=== PATIENT | male | born 1975 | race Caucasian/White ===

== ENCOUNTER 2019-11-18 17:07 | Inpatient (IN) | payer OTHER ==
[~2019-11-18] VITALS: Ht 182.8 cm; Wt 106.4 kg
[2019-11-18 17:10] VITALS: BP 161/100
[2019-11-18 17:37] LABS: BASO % 0.3 % (0.0-1.0); EOS # 0.1 10*3/uL (0.0-0.4); HEMOGLOBIN 14.3 g/dl (14.0-18.0); LYMPH # 2.6 10*3/uL (1.3-4.4); LYMPH % 32.5 % (27.0-41.0); MEAN CORPUSCULAR HGB 30.3 pg (27.0-31.0); MEAN PLATELET VOLUME 9.7 fl (9.6-12.3); MONO # 0.8 10*3/uL (0.1-1.0); MONO % 9.8 % (3.0-9.0); NEUT # 4.5 10*3/uL (2.3-7.9); PLATELET COUNT AUTOMATED 281 10*3/uL (130-400); RED BLOOD COUNT 4.72 10*6/uL (4.50-5.90); RED CELL DISTRI WIDTH 12.4 % (0-14.5)
[2019-11-18 17:47] LABS: ACT PARTIAL THROMBO TIME 25.8 SECONDS (20.0-32.1); INTERNATIONAL NORM RATIO 0.9 (2.0-3.5)
[2019-11-18 17:59] LABS: LIPASE 197 U/L (73-393)
[2019-11-18 18:00] LABS: ALBUMIN 4.1 gm/dl (3.1-4.5); ALKALINE PHOSPHATASE 48 U/L (45-117); BUN 16 mg/dl (7-24); CHLORIDE 104 mmol/L (98-107); CREATININE 1.23 mg/dL (0.70-1.30); POTASSIUM 3.6 mmol/L (3.5-5.1); SGOT/AST 14 IU/L (3-35); SGPT/ALT 33 U/L (12-78); SODIUM 137 mmol/L (136-145); TOTAL PROTEIN 7.4 gm/dL (6.4-8.2)
[2019-11-18 18:02] LABS: TROPONIN I < 0.015 ng/ml (<0.045)
[2019-11-18 18:15] VITALS: BP 124/80
[2019-11-18 19:05] VITALS: BP 122/78
[2019-11-18 19:57] VITALS: BP 126/83
--- NOTE | 2019-11-18 20:36 | NUR ---
PATIENT IN BED EATING BOX LUNCH AT THIS TIME. AOX4. NO DISTRESS NOTED. 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 VSS. RN WILL CONT TO MONITOR PATIENT
[2019-11-18 21:20] VITALS: BP 135/86
--- NOTE | 2019-11-18 21:20 | NUR ---
A 44, admitted to , under the services of ANICETO Sumner DO with a diagnosis of CHEST PAIN. Chief complaint is CHEST PAIN. Patient arrived via ambulatory from ER. Monitor applied. Initial assessment completed. Vital signs taken and recorded. ANICETO SUMNER DO notified of admission to the unit. Orders received. See assessment for past medical history, medications and allergies. Patient and/or family oriented to unit. [address] visitation policy reviewed. Clothing/patient valuable form completed. HARRISON POLLOCK
[2019-11-18] MEDS ORDERED: SIMVASTATIN20 MG PO (21:39)
[2019-11-18] MEDS ORDERED: MONTELUKAST SOD10 MG PO (21:40)
[2019-11-18] MEDS ORDERED: AMLODIPINE BESYL5 MG PO (21:40)
[2019-11-18] MEDS ORDERED: BUPROPION HCL300 MG PO (21:40)
[2019-11-18] MEDS ORDERED: ESCITALOPRAM OX10 MG PO (21:40)
[2019-11-18] MEDS ORDERED: GOOD NEIGHBOR L10 MG PO (21:41)
[2019-11-18] MEDS ORDERED: LISINOPRIL10 M1 PO (21:44)
--- NOTE | 2019-11-18 22:13 | NUR ---
CONSULT CALLED TO DR PERES
--- NOTE | 2019-11-18 22:22 | NUR ---
DR WALSH UPDATED ON PT MED REQ DONE
[2019-11-19] VITALS: BP 128/82
--- NOTE | 2019-11-19 02:52 | NUR ---
24 HR CHART CHECK COMPLETE
--- NOTE | 2019-11-19 04:11 | NUR ---
PT ASLEEP IN BED. RESPIRATIONS EASY. NO S/S OF DISTRESS NOTED. WILL MONITOR. CALL LIGHT LEFT IN REACH.
[2019-11-19 06:57] LABS: BASO % 0.3 % (0.0-1.0); EOS # 0.1 10*3/uL (0.0-0.4); EOS % 1.4 % (1.0-4.0); HEMATOCRIT 41.8 % (42.0-52.0); LYMPH % 29.1 % (27.0-41.0); MEAN CELL VOLUME 88.6 fl (80.0-94.0); MEAN CORPUSCULAR HGB 29.7 pg (27.0-31.0); MEAN CORPUSCULAR HGB CONC 33.5 g/dl (33.0-37.0); MONO # 0.8 10*3/uL (0.1-1.0); MONO % 12.1 % (3.0-9.0); NEUT # 3.9 10*3/uL (2.3-7.9); NEUT % 56.5 % (47.0-73.0); PLATELET COUNT AUTOMATED 259 10*3/uL (130-400); RED BLOOD COUNT 4.72 10*6/uL (4.50-5.90); RED CELL DISTRI WIDTH 12.4 % (0-14.5); WHITE BLOOD COUNT 6.9 10*3/uL (4.8-10.8)
[2019-11-19 07:23] LABS: BUN 15 mg/dl (7-24); CHLORIDE 106 mmol/L (98-107); POTASSIUM 3.6 mmol/L (3.5-5.1); SODIUM 141 mmol/L (136-145)
--- NOTE | 2019-11-19 07:30 | NUR ---
PT RESTING IN BED AT THIS TIME. VOICES NO CONCERNS. RESPS EASY AND NON LABORED. NO S/S OF DISTRESS. CALL LIGHT WITHIN REACH.
[2019-11-19 07:35] LABS: CHOLESTEROL 219 mg/dL (<200); CREATININE 1.18 mg/dL (0.70-1.30); HDL CHOLESTEROL 31 mg/dl (40-60); LDL CHOLESTEROL 135 mg/dL (9-159); TRIGLYCERIDES 266 mg/dl (<150); VLDL CHOLESTEROL 53 mg/dL (6-40)
[2019-11-19 08:00] VITALS: BP 112/80
--- NOTE | 2019-11-19 08:00 | NUR ---
PT TAKEN OFF FLOOR TO [facility]ARDIAC REHAB
--- NOTE | 2019-11-19 10:22 | NUR ---
Shift chart check completed.
--- NOTE | 2019-11-19 10:25 | NUR ---
INFORMED CONSENT SIGNED FOR CARDIOLYTE STRESS TEST WITH DR. PERES. RESTING EKG SINUS TACHYCARDIA, HR 108, BP 124/80. COMPLETED 7:30 OF A JESS PROTOCOL STRESS TEST COMPLETING 1:30 STAGE III, 3.4 MPH/14% GRADE. PEAK HEART RATE OF 152 ACHIEVED WHICH IS 87% PREDICTED MAXIMUM AND A PEAK BP OF 160/80. PT C/O CHEST TIGHTNESS AT 5:00 MINUTES RATING IT 3-4/10 ON PAIN SCALE. TEST TERMINATED D/T FATIGUE. PAIN DECREASED TO 2/10 AT 04:00 RECOVERY. LAST RECOVERY HR 106, BP 136/70. WAITING NUCLEAR SCANNING IN STABLE CONDITION.
--- NOTE | 2019-11-19 11:43 | NUR ---
PT BACK FROM [facility] REH[facility]
[2019-11-19 12:00] VITALS: BP 139/86
--- NOTE | 2019-11-19 12:56 | NUR ---
SPOKE WITH DR SIERRA WHO STATED TO CALL DR PERES REGARDING STRESS TEST RESULTS AND RECCOMENDATIONS. LEFT A VOICEMAIL. AWAITING CALL BACK
[2019-11-19] MEDS ORDERED: ASPIRIN CHEWABL81 M1 PO (13:50)
[2019-11-19] MEDS ORDERED: LOPRESSOR25 MG PO (13:50)
[2019-11-19] MEDS ORDERED: IMDUR SA30 MG PO (13:50)
[2019-11-19] MEDS ORDERED: ATORVASTATIN CA40 M1 PO (13:50)
--- NOTE | 2019-11-19 14:10 | NUR ---
Discharge instructions reviewed with patient/family. Patient receptive and verbalizes understanding. Follow-up care arranged. Written instructions given to patient/family. HISSOM,BINTA The Discharge Plan/Instructions have been completed.
== END 2019-11-19 14:43 | disposition home or self-care (01) | DRG 311 ==
LOC: ED 17:07 → EDHOLD 18:44 → 4E 18:44 → EDHOLD 20:40 → 4E 21:01
PROVIDERS: Emergency Medicine; Student in an Organized Health Care Education/Training Program; ADMIT Family Medicine
DX: I20.8 Other forms of angina pectoris (principal); I10 Essential (primary) hypertension; E78.5 Hyperlipidemia, unspecified; F32.9 Major depressive disorder, single episode, unspecified; R73.9 Hyperglycemia, unspecified; R00.0 Tachycardia, unspecified; E83.41 Hypermagnesemia; J30.2 Other seasonal allergic rhinitis; F41.9 Anxiety disorder, unspecified; F90.9 Attention-deficit hyperactivity disorder, unspecified type; Z82.49 Family history of ischemic heart disease and other diseases of the circulatory system; Z79.899 Other long term (current) drug therapy; Z79.82 Long term (current) use of aspirin

== ENCOUNTER 2023-12-14 10:35 | Emergency (ER) | payer OTHER ==
[~2023-12-14] VITALS: Ht 182.8 cm; Wt 103.0 kg
[~2023-12-14 10:35] MED LIST: AMLODIPINE BESYL5 MG PO; ASPIRIN CHEWABL81 M1 PO; ATORVASTATIN CA40 M1 PO; BUPROPION HCL300 MG PO; ESCITALOPRAM OX10 MG PO; GOOD NEIGHBOR L10 MG PO; IMDUR SA30 MG PO; LISINOPRIL10 M1 PO; LOPRESSOR25 MG PO; MONTELUKAST SOD10 MG PO; SIMVASTATIN20 MG PO
[2023-12-14 11:17] LABS: BASO % 0.3 % (0.0-1.0); EOS # 0.2 10*3/uL (0.0-0.4); EOS % 2.4 % (1.0-4.0); HEMATOCRIT 44.6 % (42.0-52.0); LYMPH # 2.4 10*3/uL (1.3-4.4); MEAN CELL VOLUME 89.4 fl (80.0-94.0); MEAN CORPUSCULAR HGB 29.3 pg (27.0-31.0); MEAN CORPUSCULAR HGB CONC 32.7 g/dl (33.0-37.0); MEAN PLATELET VOLUME 9.2 fl (9.6-12.3); MONO # 0.7 10*3/uL (0.1-1.0); MONO % 9.3 % (3.0-9.0); NEUT # 4.2 10*3/uL (2.3-7.9); NEUT % 55.7 % (47.0-73.0); PLATELET COUNT AUTOMATED 286 10*3/uL (130-400); RED BLOOD COUNT 4.99 10*6/uL (4.50-5.90); RED CELL DISTRI WIDTH 12.3 % (0-14.5); WHITE BLOOD COUNT 7.4 10*3/uL (4.8-10.8)
[2023-12-14 11:30] LABS: ACT PARTIAL THROMBO TIME 27.3 SECONDS (20.0-32.1)
[2023-12-14 11:49] LABS: ALKALINE PHOSPHATASE 49 U/L (46-116); BUN 13 mg/dl (9-23); CHLORIDE 102 mmol/L (98-107); POTASSIUM 4.2 mmol/L (3.4-5.1); SGPT/ALT 22 U/L (5-49); TOTAL PROTEIN 7.4 gm/dL (6.0-8.0)
[2023-12-14 12:32] LABS: BILIRUBIN Negative (Negative); BLOOD Negative (Negative); CLARITY Clear (Clear); COLOR Yellow (Yellow); GLUCOSE Negative (Negative); KETONE Negative (Negative); LEUKO ESTERASE Negative (Negative); NITRITE Negative (Negative); SPECIFIC GRAVITY 1.015 (1.001-1.030); UROBILINOGEN 0.2 E.U./dl (0.0-1.0)
[2023-12-14 12:39] LABS: RBC 0-2 rbc/hpf (0-2)
[2023-12-14] MEDS ORDERED: VIBRAMYCIN100 MG PO (15:50)
[2023-12-14] MEDS ORDERED: NASAL SPRAY44 M1 NAS (15:50)
== END 2023-12-14 17:01 | disposition home or self-care (01) ==
LOC: ED 10:35
PROVIDERS: Family Medicine
DX: H53.8 Other visual disturbances (principal); J32.9 Chronic sinusitis, unspecified; R51.9 Headache, unspecified; I10 Essential (primary) hypertension; F32.A Depression, unspecified; F41.9 Anxiety disorder, unspecified; F90.9 Attention-deficit hyperactivity disorder, unspecified type; E78.00 Pure hypercholesterolemia, unspecified; R10.2 Pelvic and perineal pain; Z88.8 Allergy status to other drugs, medicaments and biological substances; Z98.890 Other specified postprocedural states